=== PATIENT | female | born 1990 | race Caucasian/White ===

== ENCOUNTER 2022-12-24 11:07 | Outpatient (CLI) | payer BC, OTHER | END 2022-12-24 11:08 | disposition home or self-care (01) | LOC: EKG 11:07 | PROVIDERS: ATTEND Advanced Practice Midwife | DX: R00.2 Palpitations (principal) | CPT/HCPCS: 93005; 93010 ==

== ENCOUNTER 2022-12-25 01:30 | Outpatient (CLI) | payer BC, OTHER | END 2022-12-25 01:31 | disposition home or self-care (01) | LOC: ULT 01:30 | PROVIDERS: ATTEND Advanced Practice Midwife | DX: R00.2 Palpitations (principal) | CPT/HCPCS: 93306 ==